=== PATIENT | male | born 1990 | race Caucasian/White ===

== ENCOUNTER 2018-05-31 09:19 | Emergency (ER) | payer OTHER ==
[~2018-05-31] VITALS: Ht 172.7 cm; Wt 120.2 kg
[2018-05-31 09:24] VITALS: BP 99/62
[2018-05-31] MEDS ORDERED: oxyCODONE/APAP 5/325 MG 1 TAB TAB PO ONE (09:55)
[2018-05-31] MEDS ORDERED: CLINDAMYCIN 900 MG in DEXTROSE 5% 100 ML IV ONE (11:10)
[2018-05-31] MEDS ORDERED: PIPERACILLIN/TAZOBACTAM 3.375 GM in DEXTROSE 5% 50 ML IV ONE (11:10)
[2018-05-31 11:35] LABS: HEMATOCRIT 43.3 % (36-52); HEMOGLOBIN 14.3 g/dL (12.0-18.0); MEAN CORPUSCULAR HEMOGLOBIN 30 pg (27-31); MEAN CORPUSCULAR HGB CONC 33 g/dL (33-37); MEAN CORPUSCULAR VOLUME 90.1 fL (80-94); PLATELET COUNT (AUTO) 242 K/uL (140-450); RED BLOOD CELL COUNT(AUTO) 4.81 MIL/uL (4.20-6.10); RED CELL DISTRIBUTION WIDTH 12.6 % (11.6-13.7); WHITE BLOOD COUNT (AUTO) 22.2 K/uL (4.8-10.8)
[2018-05-31] MEDS ORDERED: PIPERACILLIN/TAZOBACTAM 3.375 GM VIAL IV ONE (11:38)
[2018-05-31 11:51] LABS: LYMPHOCYTES % (MANUAL) 10 % (20-46); MONOCYTES % (MANUAL) 8 % (5-12)
[2018-05-31 12:14] LABS: ANION GAP 11.5 (8-16); CARBON DIOXIDE 26.2 mmol/L (21-32); POTASSIUM 3.7 mmol/L (3.5-5.1)
[2018-05-31 12:15] LABS: ALBUMIN 3.6 g/dL (3.4-5.0); TOTAL BILIRUBIN 1.1 mg/dL (0.0-1.0)
[2018-05-31] MEDS ORDERED: CLINDAMYCIN 900 MG/6 ML VIAL IV ONE (12:25)
[2018-05-31 12:37] LABS: PROTHROMBIN TIME 10.2 secs (10.8-13.4)
[2018-05-31 12:40] VITALS: BP 124/86
== END 2018-05-31 12:39 | disposition short-term general hospital (02) ==
LOC: MED 09:19
DX: N43.3 Hydrocele, unspecified (principal)
CPT/HCPCS: 36415; 76870; 80053; 83605; 85025; 85610; 87040; 96365; 96367; 99285; J2543; J3490; Q0092

== ENCOUNTER 2020-07-27 09:26 | Emergency (ER) | payer OTHER ==
[~2020-07-27] VITALS: Ht 172.7 cm; Wt 126.1 kg
[2020-07-27 09:27] VITALS: BP 114/78
--- NOTE | 2020-07-27 09:30 | NUR ---
PT AMBULATED TO BED 12.
--- NOTE | 2020-07-27 09:41 | NUR ---
29 Y/O MALE C/O RIGHT LOWER BACK PAIN RADIATING TO RIGHT LEG, DENIES ANY TRAUMA OR INJURY. NO DEFORMITIES NOTED AT THIS TIME. PATIENT IS AMBULATORY WITH STEADY GAIT. PATIENT STATES THAT PAIN STARTED THIS AM. SKIN INTACT.
[2020-07-27] MEDS ORDERED: KETOROLAC 60 MG/2 ML VIAL IM ONE (10:05)
[2020-07-27] MEDS ORDERED: IBUP-2213 PO (10:36)
[2020-07-27] MEDS ORDERED: METH-1681 PO (10:36)
[2020-07-27 10:47] VITALS: BP 114/78
--- NOTE | 2020-07-27 10:48 | NUR ---
Patient discharged with v/s stable. Written and verbal after care instructions given and explained. Patient alert, oriented and verbalized understanding of instructions. Ambulatory with steady gait. All questions addressed prior to discharge. ID band removed. Patient advised to follow up with PMD. Rx of IBUPROFEN, ROBAXIN given. Patient educated on indication of medication including possible reaction and side effects. Opportunity to ask questions provided and answered.
== END 2020-07-27 10:48 | disposition home or self-care (01) ==
LOC: MED 09:26
DX: S39.012A Strain of muscle, fascia and tendon of lower back, initial encounter (principal); M54.41 Lumbago with sciatica, right side; E03.9 Hypothyroidism, unspecified; X58.XXXA Exposure to other specified factors, initial encounter; Y93.89 Activity, other specified; Y92.89 Other specified places as the place of occurrence of the external cause; Y99.8 Other external cause status
CPT/HCPCS: 72100; 96372; 99283; J1885

== ENCOUNTER 2020-12-13 12:45 | Emergency (ER) | payer OTHER ==
[~2020-12-13] VITALS: Ht 172.7 cm; Wt 129.3 kg
[~2020-12-13 12:45] MED LIST: IBUP-2213 PO; METH-1681 PO
[2020-12-13 12:49] VITALS: BP 103/69
--- NOTE | 2020-12-13 12:55 | NUR ---
PT AMBULATED TO BED 7
--- NOTE | 2020-12-13 13:20 | NUR ---
30 y/o M BIB self from home with c/c left ear pain x 2 days. Patient A&Ox4, ambulatory, states acute onset left ear pain 8/10, throbbing/constant, non-radiating. Patient states associated hearing loss to left ear, "it feels like it's closing." Patient denies fever/chills, nausea, vomiting, dizziness, ringing of the ears, blurry vision. Patient denies any aggrevating factors leading up to pain. States ear drops "meant for earwax" prior to arrival without relief. Denies any other medications. Bed locked in lowest position, side rails x 1, call light in reach. Friend at bedside. PMH: Hypothyroidism Meds: Levothyroxine NKA Sx: Vasectomy 2 yrs ago, cholecysectomy x 4 yrs ago
--- NOTE | 2020-12-13 13:45 | NUR ---
PA evaluating pt at bedside.
--- NOTE | 2020-12-13 13:45 | NUR ---
Soraida srinivasan in ED - 12/13/20 at 1402 by MED MD evaluating Pt at bedside.
[2020-12-13] MEDS ORDERED: IBUP-1842 PO (14:14)
[2020-12-13] MEDS ORDERED: OFLO5SOL27 LEFT EAR (14:14)
[2020-12-13 14:20] VITALS: BP 103/69
--- NOTE | 2020-12-13 14:20 | NUR ---
Patient discharged with v/s stable. Written and verbal after care instructions given and explained. Patient alert, oriented and verbalized understanding of instructions. Ambulatory with steady gait. All questions addressed prior to discharge. ID band removed. Patient advised to follow up with PMD. Rx of OFLOXACIN, IBUPROFEN given. Patient educated on indication of medication including possible reaction and side effects. Opportunity to ask questions provided and answered.
== END 2020-12-13 14:20 | disposition home or self-care (01) ==
LOC: MED 12:45
DX: H60.92 Unspecified otitis externa, left ear (principal); E03.9 Hypothyroidism, unspecified; Z90.49 Acquired absence of other specified parts of digestive tract; Z98.890 Other specified postprocedural states; Z79.899 Other long term (current) drug therapy
CPT/HCPCS: 99283